=== PATIENT | female | born 1960 | race Caucasian/White ===

== ENCOUNTER 2020-09-11 10:33 | Outpatient (RCR) | payer MEDICARE, BC ==
[~2020-09-11 10:33] MED LIST: DESENEX21 TP; IBU400 MG PO; TYLENOL 325MG325 MG PO
== END 2020-12-10 ==
LOC: MKS.ESL.PT
DX: G80.9 Cerebral palsy, unspecified (principal); I10 Essential (primary) hypertension; I89.0 Lymphedema, not elsewhere classified